=== PATIENT | male | born 1960 | race Caucasian/White ===

== ENCOUNTER 2021-10-09 14:20 | Emergency (ER) | payer OTHER ==
[2021-10-09 15:38] LABS: BASOPHIL 0.3 % (0-2); EOSINOPHIL 3.3 % (0-5); HCT 42.4 % (42.0-52.0); HGB 14.2 g/dl (13.2-18.0); LYMPHOCYTE 17.3 % (15-48); MCHC 33.5 g/dL (32.0-36.0); MCV 89.6 fL (78.0-100.0); MONOCYTE 19.3 % (0-12); MPV 9.5 fL (6.0-9.5); NEUTROPHIL 59.5 % (41-80); NRBC 0; PLT 150 K/uL (150-400); RBC 4.73 M/uL (4.70-6.00); RDW 11.8 % (11.5-14.0); WBC 6.7 K/uL (4.0-10.5)
[2021-10-09 15:55] LABS: BUN/CREAT RATIO (CALC) 13.4 RATIO; CREATININE 1.12 mg/dL (0.67-1.17)
== END 2021-10-09 18:00 | disposition home or self-care (01) ==
LOC: FER 14:20
PROVIDERS: Nurse Practitioner Family
DX: U07.1 COVID-19 (principal); I10 Essential (primary) hypertension; Z23 Encounter for immunization; Z88.0 Allergy status to penicillin
CPT/HCPCS: 36415; 71045; 80048; 85025; M0245; Q0245